=== PATIENT | female | born 1935 | race Caucasian/White ===

== ENCOUNTER 2017-04-30 09:14 | Day surgery (SDC) | payer MEDICARE, OTHER ==
[~2017-04-30 09:14] MED LIST: ADULT ASPIRIN81 MG; ASPIR 8181 M1 PO; AVAPRO150 MG; CALCIUM 600 + D1 TAB; CALCIUM 600+D1 EAC6 PO; COZAAR50 M1 PO; CYANOCOBAL1000 MCG/3 IM; EVISTA60 M1 PO; EVISTA60 MG; GLUCOSAMINE CHO; HYDROCHLOROTHIA25 MG; IMDUR30 MG; ISOSORBIDE MONO30 M4 PO; ISOSORBIDE MONO60 M3 PO; LEVOTHYROXINE50 MC3 PO; NITROSTAT0.4 M1 SL; NITROSTAT0.4 MG; NORVASC5 M2 PO; OMEPRAZOLE40 M2 PO; PREVACID30 MG; TOPROL XL50 M1 PO; TOPROL XL50 MG; XANAX0.25 M1 PO; ZOCOR20 M1 PO; ZOCOR40 MG; ZOCOR80 MG
[2017-04-30 10:02] LABS: BASO % 0.7 % (0-2); BASO ABSOLUTE COUNT 0.1 tho/cmm (0.0-0.2); EOS % 3.2 % (0-7); EOSINOPHIL ABSOLUTE COUNT 0.2 tho/cmm (0.0-0.7); HGB-HEMOGLOBIN 12.5 gm/dl (12.0-15.5); IMMATURE GRANULOCYTES ABSOLUTE 0.04 tho/cmm (0-0.03); IMMATURE GRANULOCYTES PERCENT 0.5 % (0-0.3); LYMPH % 20.3 % (20-45); LYMPH ABSOLUTE COUNT 1.5 tho/cmm (0.8-4.5); MCH (MEAN CORPUSCULAR HGB) 29.3 pg (28.0-32.0); MCHC MEAN CORPUSCULAR HGB CONC 33.8 % (32.0-36.0); MCV (MEAN CELL VOLUME) 86.7 fl (82.0-96.0); MEAN PLATELET VOLUME 10.4 cmc (9.4-12.4); MONO % 6.9 % (0-12); MONOCYTE ABSOLUTE COUNT 0.5 tho/cmm (0.0-1.2); NEUTROPHILS % 68.4 % (40-80); PLATELET COUNT 310 tho/cmm (150-450); RED BLOOD COUNT 4.27 mil/cmm (4.00-5.20); RED CELL DISTRIBUTION WIDTH 13.3 % (12.4-16.4); WHITE BLOOD COUNT 7.3 tho/cmm (4.0-10.0)
[2017-04-30 10:04] LABS: PROTHROMBIN TIME 11.2 SECONDS (9.0-13.6)
== END 2017-04-30 13:59 ==
LOC: CTSCAN 09:14 → SHSB 09:16
PROVIDERS: Radiology Diagnostic Radiology
PROC: 0BBJ3ZX Excision of Left Lower Lung Lobe, Percutaneous Approach, Diagnostic (ICD-10-PCS; principal; 2017-04-30)
DX: C34.32 Malignant neoplasm of lower lobe, left bronchus or lung (principal); F41.9 Anxiety disorder, unspecified; I25.10 Atherosclerotic heart disease of native coronary artery without angina pectoris; I70.209 Unspecified atherosclerosis of native arteries of extremities, unspecified extremity; K21.9 Gastro-esophageal reflux disease without esophagitis; E78.5 Hyperlipidemia, unspecified; I10 Essential (primary) hypertension; E03.9 Hypothyroidism, unspecified; M19.90 Unspecified osteoarthritis, unspecified site; M81.0 Age-related osteoporosis without current pathological fracture; E53.8 Deficiency of other specified B group vitamins; I70.0 Atherosclerosis of aorta; R10.9 Unspecified abdominal pain; Z79.82 Long term (current) use of aspirin; Z79.899 Other long term (current) drug therapy; Z87.11 Personal history of peptic ulcer disease; Z88.1 Allergy status to other antibiotic agents; Z88.0 Allergy status to penicillin; Z88.2 Allergy status to sulfonamides; Z88.8 Allergy status to other drugs, medicaments and biological substances; Z90.49 Acquired absence of other specified parts of digestive tract; Z90.89 Acquired absence of other organs; Z98.51 Tubal ligation status; Z98.890 Other specified postprocedural states
CPT/HCPCS: J2250; J3010; J7030

== ENCOUNTER 2017-05-05 11:48 | Inpatient (IN) | payer MEDICARE, OTHER ==
[2017-05-05] MEDS ORDERED: FIBERCON625 M2 PO (12:16)
[2017-05-05] MEDS ORDERED: ALPRAZOLAM0.25 M3 PO (12:18)
[2017-05-06 05:47] LABS: BASO % 0.3 % (0-2); EOS % 1.3 % (0-7); EOSINOPHIL ABSOLUTE COUNT 0.2 tho/cmm (0.0-0.7); HCT-HEMATOCRIT 31.3 % (34.0-49.0); HGB-HEMOGLOBIN 10.4 gm/dl (12.0-15.5); IMMATURE GRANULOCYTES ABSOLUTE 0.07 tho/cmm (0-0.03); IMMATURE GRANULOCYTES PERCENT 0.6 % (0-0.3); LYMPH % 14.7 % (20-45); LYMPH ABSOLUTE COUNT 1.7 tho/cmm (0.8-4.5); MCH (MEAN CORPUSCULAR HGB) 28.9 pg (28.0-32.0); MCHC MEAN CORPUSCULAR HGB CONC 33.2 % (32.0-36.0); MCV (MEAN CELL VOLUME) 86.9 fl (82.0-96.0); MEAN PLATELET VOLUME 9.4 cmc (9.4-12.4); MONO % 6.9 % (0-12); MONOCYTE ABSOLUTE COUNT 0.8 tho/cmm (0.0-1.2); NEUTROPHIL ABSOLUTE COUNT 8.9 tho/cmm (1.6-8.0); NEUTROPHIL-AUTOMATED 8.9 tho/cmm (1.6-8.0); NEUTROPHILS % 76.2 % (40-80); PLATELET COUNT 258 tho/cmm (150-450); RED CELL DISTRIBUTION WIDTH 13.3 % (12.4-16.4); WHITE BLOOD COUNT 11.7 tho/cmm (4.0-10.0)
[2017-05-06 05:58] LABS: ANION GAP 12 mmol/L (0-20); BLOOD UREA NITROGEN 10 mg/dl (6-24); CALCIUM 7.6 mg/dl (8.5-10.5); CARBON DIOXIDE-VENOUS 21 mmol/L (22-32); CHLORIDE 115 mmol/l (96-110); CREATININE 0.46 mg/dl (0.50-1.10); GLUCOSE 97 mg/dL (70-110); POTASSIUM 3.2 mmol/L (3.7-5.1); SODIUM 145 mmol/L (135-145); eGFR VALUE FOR BLACK >90 mL/Min
[2017-05-07] MEDS ORDERED: BENTYL10 M1 PO (14:24)
[2017-05-07] MEDS ORDERED: CULTURELLE1 EAC1 PO (14:27)
[2017-05-07] MEDS ORDERED: LOPERAMIDE2 M2 PO (14:28)
[2017-05-07] MEDS ORDERED: TRAMADOL HCL50 M2 PO (14:30)
[2017-05-07] MEDS ORDERED: MIRALAX17 G2 PO (14:31)
[2017-05-07] MEDS ORDERED: ZOFRAN4 M2 PO (14:31)
== END 2017-05-07 16:05 | DRG 392 ==
LOC: 5WF 11:48
PROVIDERS: Family Medicine; ADMIT Hospitalist
PROC: 0DBK8ZX Excision of Ascending Colon, Via Natural or Artificial Opening Endoscopic, Diagnostic (ICD-10-PCS; principal; 2017-05-06)
PROC: 0DBL8ZX Excision of Transverse Colon, Via Natural or Artificial Opening Endoscopic, Diagnostic (ICD-10-PCS; 2017-05-06)
PROC: 0DJ08ZZ Inspection of Upper Intestinal Tract, Via Natural or Artificial Opening Endoscopic (ICD-10-PCS; 2017-05-07)
DX: K57.30 Diverticulosis of large intestine without perforation or abscess without bleeding (principal); C79.31 Secondary malignant neoplasm of brain; E86.0 Dehydration; C34.92 Malignant neoplasm of unspecified part of left bronchus or lung; D64.9 Anemia, unspecified; D12.2 Benign neoplasm of ascending colon; I10 Essential (primary) hypertension; K27.9 Peptic ulcer, site unspecified, unspecified as acute or chronic, without hemorrhage or perforation; D12.3 Benign neoplasm of transverse colon; K57.32 Diverticulitis of large intestine without perforation or abscess without bleeding; K64.4 Residual hemorrhoidal skin tags; K64.8 Other hemorrhoids; E78.5 Hyperlipidemia, unspecified; K21.9 Gastro-esophageal reflux disease without esophagitis; E03.9 Hypothyroidism, unspecified; M19.90 Unspecified osteoarthritis, unspecified site; M81.0 Age-related osteoporosis without current pathological fracture; I25.2 Old myocardial infarction; I25.10 Atherosclerotic heart disease of native coronary artery without angina pectoris; D72.829 Elevated white blood cell count, unspecified; K44.9 Diaphragmatic hernia without obstruction or gangrene
CPT/HCPCS: A9552; A9577; C1751; J2270; J2405; J7030; Q9967